=== PATIENT | male | born 1940 | race Caucasian/White ===

== ENCOUNTER 2019-04-19 13:59 | Inpatient (IN) | payer OTHER, MEDICARE ==
[~2019-04-19] VITALS: Ht 180.3 cm; Wt 93.9 kg
[2019-04-19] MEDS ORDERED: DOCU-141 PO (14:35)
[2019-04-19] MEDS ORDERED: TAMS-3 PO (14:35)
[2019-04-19] MEDS ORDERED: SENN-18 PO (14:35)
[2019-04-19] MEDS ORDERED: FINA5TAB11 PO (14:35)
[2019-04-19] MEDS ORDERED: ATEN25TA PO (14:35)
[2019-04-19] MEDS ORDERED: ATOR10TA PO (14:35)
[2019-04-19] MEDS ORDERED: SEVE800T8 PO (14:35)
[2019-04-19 14:38] LABS: BASOPHILS # (AUTO) 0.1 K/uL (0.0-8.0); BASOPHILS % (AUTO) 0.8 % (0.0-2.0); EOSINOPHILS # (AUTO) 0.4 K/uL (0.0-0.7); EOSINOPHILS % (AUTO) 3.7 % (0.0-7.0); HEMATOCRIT 30.9 % (36.7-47.1); HEMOGLOBIN 9.8 g/dL (12.5-16.3); LYMPHOCYTES # (AUTO) 1.8 K/uL (20.0-40.0); LYMPHOCYTES % (AUTO) 17.7 % (20.5-51.5); MEAN CORPUSCULAR HGB CONC 32 g/dL (32.5-36.3); MEAN CORPUSCULAR VOLUME 97.6 fL (73.0-96.2); NEUTROPHILS # (AUTO) 6.7 K/uL (1.8-8.9); NEUTROPHILS % (AUTO) 67.8 % (38.5-71.5); PLATELET COUNT (AUTO) 103 K/uL (152-348); RED BLOOD CELL COUNT(AUTO) 3.17 MIL/uL (4.06-5.63); WHITE BLOOD COUNT (AUTO) 9.9 K/uL (3.6-10.2)
[2019-04-19 15:02] LABS: ALANINE AMINOTRANSFERASE 48 U/L (16-63); ALKALINE PHOSPHATASE 121 U/L (50-136); ASPARTATE AMINOTRANSFERASE 49 U/L (15-37); BILIRUBIN,DIRECT 0.1 mg/dL (0.0-0.2); BILIRUBIN,TOTAL 0.5 mg/dL (0.2-1.0); CARBON DIOXIDE 21 mmol/L (21-32); CHLORIDE 123 mmol/L (98-107); CREATININE 4.9 mg/dL (0.6-1.3); GLUCOSE 111 mg/dL (74-106); POTASSIUM 4.5 mmol/L (3.5-5.1); TOTAL PROTEIN, SERUM 8.1 g/dL (6.4-8.2)
[2019-04-19 15:06] LABS: UREA NITROGEN, BLOOD 103 mg/dL (7-18)
[2019-04-19] MEDS ORDERED: IV D5W 1000ML 1,000 ML IV ONE (15:30)
[2019-04-19 15:53] LABS: *BILIRUBIN,URIN NEGATIVE (NEGATIVE); *BLOOD, URINE 3+ (NEGATIVE); *CLARITY,URINE CLOUDY (CLEAR); *COLOR,URINE YELLOW (YELLOW); *KETONES,URINE NEGATIVE (NEGATIVE); *UROBILINOGEN,URINE 0.2 E.U./dl (NORMAL); LEUKOCYTE ESTERASE ,URINE 3+ (NEGATIVE); NITRITE, URINE POSITIVE (NEGATIVE); UGLUCOSE TRACE (NEGATIVE)
--- NOTE | 2019-04-19 16:10 | NUR ---
Pt back from CT, resting in bed.
[2019-04-19 16:16] LABS: WBC,URINE 80-100 /HPF (0-3)
[2019-04-19 16:17] LABS: BACTERIA,URINE FEW /HPF (NONE SEEN); SQUAMOUS EPITHELIAL CELL,UR FEW /HPF (NONE SEEN)
[2019-04-19] MEDS ORDERED: CEFTRIAXONE 1 G in IV DEXTROSE 5% 50 ML IV ONE (17:15)
[2019-04-19] MEDS ORDERED: CEFTRIAXONE 1 G VIAL ONE (17:16)
--- NOTE | 2019-04-19 17:20 | NUR ---
ER contacted Dr Neumann(Neurosurgeon) regarding pt's CT result.
--- NOTE | 2019-04-19 18:30 | NUR ---
ADMITTED FROM [facility] VIA ER AN 78 YO MALE WITH ADM DX OF RENAL FAILURE, UTI AND HYPERNATREMIA, AWAKE ALERT AND RESPONSIVE TO PAIN DURING CARE. SB ON MONITOR AND SOB ON EXERTION WITH 3L O2 NC. ROUTINE VS TAKEN. REPORT GIVEN TO MEDIA ACCOUNT EXECUTIVE
[2019-04-19 18:52] VITALS: BP 143/60
[2019-04-19] MEDS ORDERED: ONDANSETRON 4 MG/2 ML VIAL IV PRN (19:30)
[2019-04-19] MEDS ORDERED: ACETAMINOPHEN 650 MG SUPP.RECT RC PRN (19:30)
--- NOTE | 2019-04-19 19:30 | NUR ---
RECEIVED IN BED AWAKE, A/O X1. CONFUSED. IN NO ACUTE SIGNS OF DISTRESS. O2 @2LPM/NC. WILL CONTINUE TO MONITOR.
[2019-04-19 20:00] VITALS: BP 147/74
[2019-04-19] MEDS: TAMSULOSIN HCL 0.4 MG CAP.SR.24H PO SCH (20:14)
[2019-04-19] MEDS: DOCUSATE SODIUM 100 MG CAPSULE PO SCH (20:14)
[2019-04-19] MEDS ORDERED: DOCUSATE SODIUM 250 MG CAPSULE PO SCH (21:00)
[2019-04-20] VITALS: BP 111/52
[2019-04-20 04:00] VITALS: BP 127/65
[2019-04-20] MEDS: PANTOPRAZOLE SODIUM 40 MG TABLET.DR PO SCH (06:16)
--- NOTE | 2019-04-20 06:48 | NUR ---
PT RESTING IN BED, IN NO ACUTE SIGNS OF DISTRESS AT THIS TIME. SINUS JAEL 40S WHEN ASLEEP, WITH BUNDLE BRANCH.
[2019-04-20 06:59] LABS: BASOPHILS # (AUTO) 0.1 K/uL (0.0-8.0); BASOPHILS % (AUTO) 1.5 % (0.0-2.0); EOSINOPHILS # (AUTO) 0.4 K/uL (0.0-0.7); EOSINOPHILS % (AUTO) 3.7 % (0.0-7.0); HEMATOCRIT 28.5 % (36.7-47.1); HEMOGLOBIN 9.1 g/dL (12.5-16.3); LYMPHOCYTES # (AUTO) 1.7 K/uL (20.0-40.0); LYMPHOCYTES % (AUTO) 17.9 % (20.5-51.5); MEAN CORPUSCULAR HEMOGLOBIN 31.1 uug (23.8-33.4); MEAN CORPUSCULAR HGB CONC 32 g/dL (32.5-36.3); MEAN CORPUSCULAR VOLUME 97.3 fL (73.0-96.2); MONOCYTES # (AUTO) 0.9 K/uL (2.0-10.0); MONOCYTES % (AUTO) 9.1 % (0.0-11.0); NEUTROPHILS # (AUTO) 6.6 K/uL (1.8-8.9); NEUTROPHILS % (AUTO) 67.8 % (38.5-71.5); PLATELET COUNT (AUTO) 90 K/uL (152-348); RED BLOOD CELL COUNT(AUTO) 2.93 MIL/uL (4.06-5.63); WHITE BLOOD COUNT (AUTO) 9.7 K/uL (3.6-10.2)
[2019-04-20 07:12] LABS: IRON, SERUM 63 ug/dL (50-175)
[2019-04-20 07:48] LABS: EOSINOPHILS % (MANUAL) 1 % (0-8); LYMPHOCYTES % (MANUAL) 22 % (20-40); MONOCYTES % (MANUAL) 7 % (2-10); NEUTROPHILS % (MANUAL) 70 % (42-75)
[2019-04-20 08:05] LABS: THYROID STIMULATING HORMONE 5.568 mIU/mL (0.358-3.740)
[2019-04-20 08:06] LABS: ALANINE AMINOTRANSFERASE 42 U/L (16-63); ALKALINE PHOSPHATASE 111 U/L (50-136); ASPARTATE AMINOTRANSFERASE 52 U/L (15-37); BILIRUBIN,TOTAL 0.4 mg/dL (0.2-1.0); CARBON DIOXIDE 20 mmol/L (21-32); CHLORIDE 124 mmol/L (98-107); CHOLESTEROL 115 mg/dL (<200); CREATININE 4.8 mg/dL (0.6-1.3); GLUCOSE 89 mg/dL (74-106); HDL CHOLESTEROL 25 mg/dL (40-60); MAGNESIUM 2.1 mg/dL (1.8-2.4); POTASSIUM 4.6 mmol/L (3.5-5.1); TOTAL PROTEIN, SERUM 7.9 g/dL (6.4-8.2); TRIGLYCERIDES 131 MG/DL (30-150)
[2019-04-20 08:12] LABS: UREA NITROGEN, BLOOD 101 mg/dL (7-18)
--- NOTE | 2019-04-20 08:15 | NUR ---
Notified Dr Edwards critical lab of NA 157, BUN 101/creat 4.8. Awaiting further orders. Discussed with RECORDS MANAGER to limit Fluid secondary to pt edema +2 BERLIN EXt. Will monitor output through F/C.
[2019-04-20] MEDS: BUMETANIDE 1 MG/4 ML VIAL IV SCH (08:57)
[2019-04-20] MEDS: FINASTERIDE 5 MG TABLET PO SCH (08:57)
[2019-04-20] MEDS: IV 1/2NS 1000 ML 1,000 ML IV PRN ×2 (10:46→23:56)
[2019-04-20 11:00] VITALS: BP_SYST 122; BP_SYST 124; BP_DIAS 64; BP_DIAS 81
--- NOTE | 2019-04-20 11:00 | NUR ---
BRANDY SIMS concerned about hydrocephalus form head ct here at [facility]. [facility] about [facility] baseline and how pt was prior to transfer here at [facility]. Pt's has been having hard time finding words same from prior condition. Per izaiah pt has no reported hydrocephalus. ABG done and resulted and given to Chago NAVA by RT. Called Sister TROY GUTIERREZ to get consent for getting authorization to release record from [facility] about any ct/mri imaging that discusses with hydrocephalus. Awaiting call back.
--- NOTE | 2019-04-20 11:30 | NUR ---
Spoke with sister max alonso. OK with giving consent to release record necessary from [facility]. Sister states that he has had thi hydrocephalus for awhile. Faxed request to release record to [facility]. 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
[2019-04-20 12:10] LABS: ABG BASE EXCESS -9.5 mmol/L; ABG HCO3 15.6 mmol/L; ABG PCO2 31.2 mmHg (35.0-45.0); ABG PH 7.317 (7.350-7.450); ABG PO2 89.9 mmHg (75.0-100.0); ABG SITE LEFT RADIAL; COHb 0.8 % (0.5-1.5); MetHb 0.3 % (0.0-1.5); O2Hb 95.6 % (94.0-97.0); VENT MODE Nasal Cannula
[2019-04-20 12:16] LABS: *BILIRUBIN,URIN NEGATIVE (NEGATIVE); *BLOOD, URINE 2+ (NEGATIVE); *CLARITY,URINE SLIGHTLY CLOUDY (CLEAR); *COLOR,URINE LIGHT YELLOW (YELLOW); *KETONES,URINE NEGATIVE (NEGATIVE); *UROBILINOGEN,URINE 0.2 E.U./dl (NORMAL); LEUKOCYTE ESTERASE ,URINE 2+ (NEGATIVE); NITRITE, URINE NEGATIVE (NEGATIVE); PH,URINE 5.5 (5.0-8.0); UGLUCOSE TRACE (NEGATIVE)
[2019-04-20 12:23] LABS: SQUAMOUS EPITHELIAL CELL,UR NONE SEEN /HPF (NONE SEEN)
[2019-04-20 12:24] LABS: BACTERIA,URINE FEW /HPF (NONE SEEN); RBC,URINE TNTC /HPF (0-3); WBC,URINE 80-100 /HPF (0-3)
[2019-04-20 13:10] LABS: *CREATININE,URINE 51.4 mg/dL (30-125)
[2019-04-20 15:15] VITALS: BP 136/53
--- NOTE | 2019-04-20 16:00 | NUR ---
[facility] records received and noted hydrocephalus on prior CT. Put records on chart.
[2019-04-20] MEDS: CEFTRIAXONE 1 G in IV DEXTROSE 5% 50 ML IV SCH (16:24)
--- NOTE | 2019-04-20 18:30 | NUR ---
Output of 1000cc from f/c - bumex given earlier effective. No fall noted this shift. Pt on High Fowlers position. Call light is within reach.
--- NOTE | 2019-04-20 19:40 | NUR ---
Received patient awake in bed, confused, has garbled speech which per report is patient's baseline status. He has oxygen support at 2lpm via nasal cannula, maintained, not in respiratory distress. He has an iv access on the right forearm to ongoing IVF, infusing well. Bed kept in semi-fowlers position, locked, side rails up x 2. Noise and lights subdued. Will continue to monitor.
[2019-04-20 20:00] VITALS: BP 130/52
[2019-04-20] MEDS: DOCUSATE SODIUM 100 MG CAPSULE PO SCH (21:08)
[2019-04-20] MEDS: TAMSULOSIN HCL 0.4 MG CAP.SR.24H PO SCH (21:08)
[2019-04-21 00:05] VITALS: BP 136/62
--- NOTE | 2019-04-21 02:00 | NUR ---
Patient has increased respiratory rate and labored breathing but no coughing. Called and spoke with Dr. Ashton regarding patient's breathing, MD ordered to hold IV fluids and do a chest xray - noted and ordered.
[2019-04-21 04:00] VITALS: BP 128/66
--- NOTE | 2019-04-21 05:59 | NUR ---
Patient slept intermittently throughout the night. Still with oxygen support at 2lpm via nasal cannula, maintained. With IV access now at left hand to saline lock. Dr. Ashton ordered to hold IV fluid hydration due to increased respiratory rate and labored breathing. Chest xray was also done. No other untoward events noted. Attended all needs. Ensured safety and comfort.
[2019-04-21] MEDS: PANTOPRAZOLE SODIUM 40 MG TABLET.DR PO SCH (06:19)
[2019-04-21 06:54] LABS: BASOPHILS % (AUTO) 0.6 % (0.0-2.0); EOSINOPHILS # (AUTO) 0.3 K/uL (0.0-0.7); EOSINOPHILS % (AUTO) 3.5 % (0.0-7.0); HEMATOCRIT 28.3 % (36.7-47.1); HEMOGLOBIN 9.2 g/dL (12.5-16.3); LYMPHOCYTES # (AUTO) 1.6 K/uL (20.0-40.0); LYMPHOCYTES % (AUTO) 21.8 % (20.5-51.5); MEAN CORPUSCULAR HEMOGLOBIN 31.4 uug (23.8-33.4); MEAN CORPUSCULAR HGB CONC 32 g/dL (32.5-36.3); MEAN CORPUSCULAR VOLUME 97.1 fL (73.0-96.2); MONOCYTES # (AUTO) 0.7 K/uL (2.0-10.0); MONOCYTES % (AUTO) 9.7 % (0.0-11.0); NEUTROPHILS # (AUTO) 4.7 K/uL (1.8-8.9); NEUTROPHILS % (AUTO) 64.4 % (38.5-71.5); PLATELET COUNT (AUTO) 81 K/uL (152-348); RED BLOOD CELL COUNT(AUTO) 2.92 MIL/uL (4.06-5.63); WHITE BLOOD COUNT (AUTO) 7.4 K/uL (3.6-10.2)
[2019-04-21 07:05] LABS: ALANINE AMINOTRANSFERASE 38 U/L (16-63); ALKALINE PHOSPHATASE 99 U/L (50-136); ASPARTATE AMINOTRANSFERASE 43 U/L (15-37); BILIRUBIN,TOTAL 0.4 mg/dL (0.2-1.0); CARBON DIOXIDE 19 mmol/L (21-32); CHLORIDE 123 mmol/L (98-107); CREATININE 4.9 mg/dL (0.6-1.3); GLUCOSE 85 mg/dL (74-106); MAGNESIUM 2.2 mg/dL (1.8-2.4); PHOSPHOROUS 6.3 mg/dL (2.5-4.9); POTASSIUM 4.4 mmol/L (3.5-5.1)
[2019-04-21 07:29] LABS: UREA NITROGEN, BLOOD 94 mg/dL (7-18)
--- NOTE | 2019-04-21 08:00 | NUR ---
AWAKE ALERT AND SCREAMING LOUD ON AND OFF, NEEDS ATTENDED. SR ON MONITOR, NO SS OF DISTRESS O2 SAT 96 AT 2L NC. OBSERVE.
[2019-04-21] MEDS: FINASTERIDE 5 MG TABLET PO SCH (08:22)
[2019-04-21] MEDS: BUMETANIDE 1 MG/4 ML VIAL IV SCH (08:22)
[2019-04-21] MEDS: ACETAMINOPHEN 325 MG TABLET PO PRN ×2 (08:23→23:21)
[2019-04-21 12:00] VITALS: BP 127/68
[2019-04-21] MEDS ORDERED: IV 1/2NS 1000 ML 1,000 ML IV PRN (12:00)
--- NOTE | 2019-04-21 12:00 | NUR ---
PATIENT CONTINUE TO BE SCREAMING AND PULLING OUT IV NEEDLE X2 IN SPITE OF WRAPPING SITE WITH KERLIX. SOFT MITTENS APPLIED AND CLOSELY MONITORED
[2019-04-21 12:19] LABS: ABG PCO2 31.4 mmHg (35.0-45.0); ABG PH 7.325 (7.350-7.450); ABG PO2 97.9 mmHg (75.0-100.0); ABG SITE LEFT BRACHIAL; ABG TOTAL HEMOGLOBIN 9.3 G/dL (13.5-18.0); COHb 0.6 % (0.5-1.5); MetHb 0.2 % (0.0-1.5); O2Hb 96.5 % (94.0-97.0); VENT MODE Nasal Cannula
[2019-04-21 15:48] VITALS: BP 138/65
--- NOTE | 2019-04-21 16:07 | NUR ---
CONTINUE TO SCREAM AND VERBALLY ABUSIVE PRN MEDS GIVEN AND CLOSELY MONITORED SR ON MONITOR
[2019-04-21] MEDS: MORPHINE SULFATE 2 MG/1 ML DISP.SYRIN IV PRN ×2 (16:16→20:22)
[2019-04-21] MEDS: CEFTRIAXONE 1 G in IV DEXTROSE 5% 50 ML IV SCH (16:16)
[2019-04-21 20:00] VITALS: BP 152/73
--- NOTE | 2019-04-21 20:00 | NUR ---
RECEIVED PT. ALERT ORIENTED X 1-2, CONFUSED, AGITATED, AND YELLING. IV SITE IN LEFT HAND 20 GAUGE HEP LOCK. PT. CONTINUOUSLY YELLING AND BEING DISRUPTIVE TO UNIT. CALLED NURSE PRACTITIONER PA SIMS AND GEOMAGNETICIAN ORDERED ABG STAT. CALL LIGHT WITHIN REACH. SIDE RAILS LOCKED. BED IN LOWEST POSITION. BED ALARM ON.
[2019-04-21 20:15] LABS: ABG BASE EXCESS -9.2 mmol/L; ABG HCO3 15.8 mmol/L; ABG PCO2 31.1 mmHg (35.0-45.0); ABG PH 7.324 (7.350-7.450); ABG PO2 80.1 mmHg (75.0-100.0); ABG SITE RIGHT RADIAL; ABG TOTAL HEMOGLOBIN 9.4 G/dL (13.5-18.0); COHb 1.3 % (0.5-1.5); MetHb 0.5 % (0.0-1.5); O2Hb 94.1 % (94.0-97.0); VENT MODE Nasal Cannula
[2019-04-21] MEDS: DOCUSATE SODIUM 100 MG CAPSULE PO SCH (20:23)
[2019-04-21] MEDS: TAMSULOSIN HCL 0.4 MG CAP.SR.24H PO SCH (20:23)
[2019-04-22] MEDS: MORPHINE SULFATE 2 MG/1 ML DISP.SYRIN IV PRN ×3 (04:05→22:12)
[2019-04-22 04:53] VITALS: BP 135/66
--- NOTE | 2019-04-22 05:32 | NUR ---
Pt. is alert oriented to self and confused. Pt. slept intermittently during night with episodes of pt agitation presented by screaming loud and being restless. IV site in left hand 20 gauge hep lock. Aspiration precautions and HOB raised greater than 90 degrees. ABG resulted last night. Per RT, no critical values. Pt has mitten restraints on bilaterally and we are assessing and monitoring pt as ordered. Carranza catheter draining well. All needs attended to promptly. Safety initiated. Bed in lowest position, 2 side rails up, bed locked, call light within reach. Comfort measures provided. Will continue to monitor.
[2019-04-22 06:45] LABS: BASOPHILS % (AUTO) 0.4 % (0.0-2.0); EOSINOPHILS # (AUTO) 0.2 K/uL (0.0-0.7); EOSINOPHILS % (AUTO) 2.8 % (0.0-7.0); HEMATOCRIT 25.7 % (36.7-47.1); HEMOGLOBIN 8.3 g/dL (12.5-16.3); LYMPHOCYTES # (AUTO) 1.6 K/uL (20.0-40.0); LYMPHOCYTES % (AUTO) 19.6 % (20.5-51.5); MEAN CORPUSCULAR HEMOGLOBIN 31.4 uug (23.8-33.4); MEAN CORPUSCULAR HGB CONC 32 g/dL (32.5-36.3); MEAN CORPUSCULAR VOLUME 97.5 fL (73.0-96.2); MONOCYTES # (AUTO) 0.9 K/uL (2.0-10.0); MONOCYTES % (AUTO) 10.9 % (0.0-11.0); NEUTROPHILS # (AUTO) 5.4 K/uL (1.8-8.9); NEUTROPHILS % (AUTO) 66.3 % (38.5-71.5); PLATELET COUNT (AUTO) 80 K/uL (152-348); RED BLOOD CELL COUNT(AUTO) 2.64 MIL/uL (4.06-5.63); WHITE BLOOD COUNT (AUTO) 8.2 K/uL (3.6-10.2)
[2019-04-22 06:54] LABS: ALANINE AMINOTRANSFERASE 35 U/L (16-63); ALKALINE PHOSPHATASE 95 U/L (50-136); ASPARTATE AMINOTRANSFERASE 41 U/L (15-37); BILIRUBIN,TOTAL 0.4 mg/dL (0.2-1.0); CARBON DIOXIDE 19 mmol/L (21-32); CHLORIDE 123 mmol/L (98-107); CREATINE KINASE, TOTAL 155 U/L (39-308); CREATININE 4.9 mg/dL (0.6-1.3); GLUCOSE 97 mg/dL (74-106); MAGNESIUM 2.2 mg/dL (1.8-2.4); PHOSPHOROUS 6.5 mg/dL (2.5-4.9); POTASSIUM 4.3 mmol/L (3.5-5.1)
[2019-04-22] MEDS: PANTOPRAZOLE SODIUM 40 MG TABLET.DR PO SCH (06:57)
[2019-04-22 07:08] LABS: UREA NITROGEN, BLOOD 98 mg/dL (7-18)
--- NOTE | 2019-04-22 08:00 | NUR ---
RESTING IN BED BUT AWAKE AND UNABLE TO FOLLOW COMMAND. NOTED ALSO WITH ON AND OFF YELLING/SCREAMING. NEEDS ATTENDED AND CLOSELY MONITORED. APPETITE EXCELLENT. NO SS OF DISTRESS
[2019-04-22] MEDS: BUMETANIDE 1 MG/4 ML VIAL IV SCH (08:19)
[2019-04-22] MEDS: FINASTERIDE 5 MG TABLET PO SCH (08:19)
[2019-04-22] MEDS: ACETAMINOPHEN 325 MG TABLET PO PRN (08:19)
[2019-04-22 11:40] VITALS: BP 113/49
--- NOTE | 2019-04-22 11:48 | NUR ---
SEEN BY GLADYS SIMS FOR MEDICAL FOLLOW-UP SEE NOTES
[2019-04-22] MEDS ORDERED: IV D5W 1000ML 1,000 ML IV SCH (12:45)
[2019-04-22 15:08] VITALS: BP 119/58
[2019-04-22] MEDS: CEFTRIAXONE 1 G in IV DEXTROSE 5% 50 ML IV SCH (15:34)
--- NOTE | 2019-04-22 17:29 | NUR ---
CONTINUE CURRENT TX PLAN ORDERED. CONTINUE WITH PAIN MANAGEMENT
--- NOTE | 2019-04-22 19:45 | NUR ---
Patient was received from the day shift RN. Carranza is draining, IV is patent and intact. Patient has soft mittens bilaterally. Skin is intact, comfort and safety provided.
[2019-04-22 20:00] VITALS: BP 114/48
[2019-04-22] MEDS: DOCUSATE SODIUM 100 MG CAPSULE PO SCH (21:11)
[2019-04-22] MEDS: TAMSULOSIN HCL 0.4 MG CAP.SR.24H PO SCH (21:12)
[2019-04-22] MEDS: QUETIAPINE FUMARATE 25 MG TABLET PO PRN (23:30)
--- NOTE | 2019-04-23 05:00 | NUR ---
Pt. became rapidly agitated and removed both mittens and pulled out IV. IV site was cleaned and dressed. Linen was changed. Pt. has increasingly pedal edema, shortness of breath, and increasing respiratory rate. HOB raised, held fluids due to possible flue overload. Will continue to monitor. Charge nurse notified.
[2019-04-23 05:21] VITALS: BP 117/65
[2019-04-23 06:37] LABS: BASOPHILS # (AUTO) 0.1 K/uL (0.0-8.0); BASOPHILS % (AUTO) 0.6 % (0.0-2.0); EOSINOPHILS # (AUTO) 0.2 K/uL (0.0-0.7); EOSINOPHILS % (AUTO) 2.3 % (0.0-7.0); HEMATOCRIT 28.1 % (36.7-47.1); HEMOGLOBIN 8.9 g/dL (12.5-16.3); LYMPHOCYTES # (AUTO) 1.3 K/uL (20.0-40.0); LYMPHOCYTES % (AUTO) 15.5 % (20.5-51.5); MEAN CORPUSCULAR HEMOGLOBIN 31.1 uug (23.8-33.4); MEAN CORPUSCULAR HGB CONC 32 g/dL (32.5-36.3); MEAN CORPUSCULAR VOLUME 97.9 fL (73.0-96.2); MONOCYTES # (AUTO) 0.7 K/uL (2.0-10.0); MONOCYTES % (AUTO) 8.5 % (0.0-11.0); NEUTROPHILS # (AUTO) 6.2 K/uL (1.8-8.9); NEUTROPHILS % (AUTO) 73.1 % (38.5-71.5); PLATELET COUNT (AUTO) 79 K/uL (152-348); RED BLOOD CELL COUNT(AUTO) 2.87 MIL/uL (4.06-5.63); WHITE BLOOD COUNT (AUTO) 8.5 K/uL (3.6-10.2)
[2019-04-23 06:51] LABS: CARBON DIOXIDE 20 mmol/L (21-32); CHLORIDE 117 mmol/L (98-107); CREATININE 5.1 mg/dL (0.6-1.3); GLUCOSE 83 mg/dL (74-106); MAGNESIUM 2.2 mg/dL (1.8-2.4); PHOSPHOROUS 6.1 mg/dL (2.5-4.9); POTASSIUM 3.7 mmol/L (3.5-5.1)
[2019-04-23 06:55] LABS: UREA NITROGEN, BLOOD 91 mg/dL (7-18)
[2019-04-23] MEDS: PANTOPRAZOLE SODIUM 40 MG TABLET.DR PO SCH (07:15)
[2019-04-23 07:29] LABS: BAND % (MANUAL) 1 % (0-10); BASOPHILS % (MANUAL) 1 % (0-2); LYMPHOCYTES % (MANUAL) 15 % (20-40); MONOCYTES % (MANUAL) 9 % (2-10); NEUTROPHILS % (MANUAL) 74 % (42-75)
--- NOTE | 2019-04-23 07:50 | NUR ---
Dr. Los Jones is on the floor, was notified of possible fluid overload earlier. He shares the concern and aware of the crackes in the lungs, already discontinued the fluids. patient is in no acute distress, comfort and safety provided. New IV was inserted in the left wrist. Report given to the day shift RN.
[2019-04-23 08:11] LABS: A/G RATIO 0.7 (0.7-1.7); ALBUMIN 2.7 g/dL (2.9-4.4); ALPHA-1-GLOBULIN 0.3 g/dL (0.0-0.4); ALPHA-2-GLOBULIN 0.6 g/dL (0.4-1.0); BETA GLOBULIN 1.3 g/dL (0.7-1.3); GAMMA GLOBULIN 1.7 g/dL (0.4-1.8); GLOBULIN, TOTAL 3.9 g/dL (2.2-3.9); M-SPIKE Not Observed g/dL (Not Observed)
[2019-04-23] MEDS: FINASTERIDE 5 MG TABLET PO SCH (08:19)
[2019-04-23] MEDS: BUMETANIDE 1 MG/4 ML VIAL IV SCH (08:19)
[2019-04-23 11:14] VITALS: BP 101/46
[2019-04-23 15:36] VITALS: BP 94/48
[2019-04-23] MEDS: CEFTRIAXONE 1 G in IV DEXTROSE 5% 50 ML IV SCH (16:00)
--- NOTE | 2019-04-23 18:26 | NUR ---
Patient stable, no distress or pain noted. Patient on oxygen via nasal cannula. Mittens on for safety, order for restraints entered today 0700 per Jeaneth Anders NP. Safety checks q15 minutes. Patient resting comfortably. Will endorse care to oncoming shift.
--- NOTE | 2019-04-23 19:30 | NUR ---
PATIENT ALERT BUT FORGETFUL, NO SOB NO CHEST PAIN, ON OXYGEN 2LP NASAL CANNULA. PATIENT ON HAND MITTENS, CHECK FOR CIRCULATION AND PLACEMENT. PATIENT ON HAND MITTENS DUE PULLING OUT TUBES, OXYGEN AND MEDINA CATHETER. MEDINA CATH PATENT DRAINING WITH YELLOW COLOR URINE IN MODERATE AMOUNT. PATIENT HAS EPISODE OF AGITATIONS, YELLING AND SCREAMING, PATIENT ABLE TO REDIRECT BEHAVIOR AT THIS TIME. CONT TO MONITOR.
[2019-04-23 19:42] VITALS: BP 116/59
[2019-04-23] MEDS: ACETAMINOPHEN 325 MG TABLET PO PRN (20:18)
[2019-04-23] MEDS: DOCUSATE SODIUM 100 MG CAPSULE PO SCH (20:18)
[2019-04-23] MEDS: TAMSULOSIN HCL 0.4 MG CAP.SR.24H PO SCH (20:19)
[2019-04-23] MEDS: QUETIAPINE FUMARATE 25 MG TABLET PO PRN (20:59)
[2019-04-23] MEDS: MORPHINE SULFATE 2 MG/1 ML DISP.SYRIN IV PRN (21:21)
[2019-04-23] MEDS ORDERED: LORAZEPAM 2 MG/1 ML VIAL IV ONE (22:00)
--- NOTE | 2019-04-23 22:00 | NUR ---
PATIENT YELLING AND SCREAMING FOR NO REASON, PATIENT WAS GIVEN PAIN MEDICATIONS, KEPT CLEAN AND DRY, TURN AND REPOSITION, BUT STILL YELLING ON TOP OF HIS LUNGS, NOTIFY PA SIMS HAND MOLDER MEAT WITH NEW ORDER. CONT TO MONITOR.
[2019-04-24 04:34] VITALS: BP 137/65
[2019-04-24] MEDS: PANTOPRAZOLE SODIUM 40 MG TABLET.DR PO SCH (06:12)
[2019-04-24 06:29] LABS: BASOPHILS # (AUTO) 0.1 K/uL (0.0-8.0); BASOPHILS % (AUTO) 0.5 % (0.0-2.0); EOSINOPHILS # (AUTO) 0.2 K/uL (0.0-0.7); EOSINOPHILS % (AUTO) 1.7 % (0.0-7.0); HEMATOCRIT 26.9 % (36.7-47.1); HEMOGLOBIN 8.5 g/dL (12.5-16.3); LYMPHOCYTES # (AUTO) 1.7 K/uL (20.0-40.0); LYMPHOCYTES % (AUTO) 13.8 % (20.5-51.5); MEAN CORPUSCULAR HGB CONC 32 g/dL (32.5-36.3); MEAN CORPUSCULAR VOLUME 98.1 fL (73.0-96.2); MONOCYTES # (AUTO) 1.2 K/uL (2.0-10.0); MONOCYTES % (AUTO) 9.9 % (0.0-11.0); NEUTROPHILS # (AUTO) 8.9 K/uL (1.8-8.9); NEUTROPHILS % (AUTO) 74.1 % (38.5-71.5); PLATELET COUNT (AUTO) 78 K/uL (152-348); RED BLOOD CELL COUNT(AUTO) 2.74 MIL/uL (4.06-5.63)
[2019-04-24 07:02] LABS: BAND % (MANUAL) 1 % (0-10); LYMPHOCYTES % (MANUAL) 14 % (20-40); NEUTROPHILS % (MANUAL) 68 % (42-75)
[2019-04-24 07:03] LABS: EOSINOPHILS % (MANUAL) 4 % (0-8); MONOCYTES % (MANUAL) 13 % (2-10)
[2019-04-24 07:06] LABS: CARBON DIOXIDE 20 mmol/L (21-32); CHLORIDE 117 mmol/L (98-107); CREATININE 5.8 mg/dL (0.6-1.3); GLUCOSE 97 mg/dL (74-106); MAGNESIUM 2.1 mg/dL (1.8-2.4); PHOSPHOROUS 6.5 mg/dL (2.5-4.9)
[2019-04-24 07:09] LABS: UREA NITROGEN, BLOOD 94 mg/dL (7-18)
--- NOTE | 2019-04-24 07:30 | NUR ---
Received report from manufacturing supervisor 2nd shift nurse, patient in bed asleep, no distress noted at this time, bed in low position, side rails upx2, bed alarm on.
[2019-04-24] MEDS: FINASTERIDE 5 MG TABLET PO SCH (09:29)
[2019-04-24] MEDS: BUMETANIDE 1 MG/4 ML VIAL IV SCH (09:30)
--- NOTE | 2019-04-24 10:06 | NUR ---
- Recommend further restrict protein to 50gm/day per estimated needs and BUN/Cr labs remaining high. With dialysis refusal, conservative dietary management is indicated. - Continue K2 renal diet, consider other restrictions as needed based on renal sufficiency and nutrient levels. - Monitor PO intake, renal/anemia labs, weight, skin integrity, GI/LBM. Addendum: 04/24/19 at [address] Amended: Links added.
[2019-04-24] MEDS ORDERED: EPOETIN ALFA 10,000 UNITS/ML VIAL SQ ONE (11:00)
--- NOTE | 2019-04-24 11:30 | NUR ---
Patient noted to have blood in rayo catheter. Repositioned bag and will continue to monitor for bleeding.
[2019-04-24] MEDS: Z GUARD REMEDY PASTE 57 GM TUBE TOP SCH ×2 (11:45→22:56)
[2019-04-24 11:50] VITALS: BP 113/49
[2019-04-24] MEDS: SEVELAMER CARBONATE 800 MG TABLET PO SCH ×2 (12:42→18:00)
[2019-04-24] MEDS: MORPHINE SULFATE 2 MG/1 ML DISP.SYRIN IV PRN (15:24)
[2019-04-24] MEDS ORDERED: LORAZEPAM 2 MG/1 ML VIAL IV ONE (16:00)
[2019-04-24 16:27] VITALS: BP 122/62
[2019-04-24] MEDS: CEFTRIAXONE 1 G in IV DEXTROSE 5% 50 ML IV SCH (16:27)
--- NOTE | 2019-04-24 17:51 | NUR ---
patients rayo started to have bright red blood again, and physician was notified. No new orders at this time.
--- NOTE | 2019-04-24 18:51 | NUR ---
Patient has been agitated and disruptive to his care by pulling out IV line, and pulling and biting mittens and striking at staff through most of the shift. Currently patient is in bed asleep, no distress noted at this time, and refusing meds and meals after breakfast. Patient spit lunch out after first bite.
--- NOTE | 2019-04-24 19:30 | NUR ---
RECEIVED PATIENT ALERT BUT FORGETFUL, NO S/S OF SOB NO S/S OF CHEST PAIN, HOB ELEVATED, ON OXYGEN 2LPM OXYGEN SAT 97%, PATIENT QUIET AT THIS TIME NO YELLING NOTED AT THIS TIME. RECEIVED PATIENT WITH NO HAND MITTENS AT THIS TIME. PATIENT HAS NO BEHAVIORAL EPISODES OF PULLING IV, NO PULLING OF MEDINA CATH AT THIS TIME. RECEIVED PATIENT WITH HEMATURIA, AND BLOOD CLOTS, PER REPORT THAT PATIENT TRYING TO PULLED OUT MEDINA CATH CAUSING BLEEDING ON THE MEDINA. CONT TO MONITOR.
[2019-04-24 19:45] VITALS: BP 127/52
--- NOTE | 2019-04-24 21:00 | NUR ---
PATIENT NOTED PULLING OUT IV LINE, AND RESISTIVE WITH CARE, YELLS AND SCREAM, GAVE PATIENT SEROQUEL MEDS ORDERED, PLACE ENTRY WRITER MITTENS, CHECKED FOR CIRCULATION AND PLACEMENT. PATIENT MEDINA CATH DRAINING WITH TEA COLOR URINE IN MODERATE AMOUNT WITH MINIMAL CLOTS NOTED. TURN AND REPOSITION, KEPT COMFORTABLE.
[2019-04-24] MEDS: QUETIAPINE FUMARATE 25 MG TABLET PO PRN (21:13)
[2019-04-24] MEDS: DOCUSATE SODIUM 100 MG CAPSULE PO SCH (21:13)
[2019-04-24] MEDS: ACETAMINOPHEN 325 MG TABLET PO PRN (21:13)
[2019-04-24] MEDS: TAMSULOSIN HCL 0.4 MG CAP.SR.24H PO SCH (21:13)
[2019-04-25 04:38] VITALS: BP 111/50
[2019-04-25] MEDS: PANTOPRAZOLE SODIUM 40 MG TABLET.DR PO SCH (07:22)
[2019-04-25] MEDS: SEVELAMER CARBONATE 800 MG TABLET PO SCH ×3 (07:23→17:21)
[2019-04-25] MEDS: FINASTERIDE 5 MG TABLET PO SCH (08:06)
[2019-04-25] MEDS: Z GUARD REMEDY PASTE 57 GM TUBE TOP SCH (08:06)
[2019-04-25] MEDS: BUMETANIDE 1 MG/4 ML VIAL IV SCH (08:18)
[2019-04-25 11:07] VITALS: BP 100/42
[2019-04-25 15:06] VITALS: BP 128/60
[2019-04-25] MEDS ORDERED: CEFT1FRO2 IV (15:45)
[2019-04-25] MEDS ORDERED: QUET25TA PO (15:45)
[2019-04-25] MEDS ORDERED: SEVE800T7 PO (15:45)
[2019-04-25] MEDS ORDERED: PANT40TA2 PO (15:45)
[2019-04-25] MEDS: CEFTRIAXONE 1 G in IV DEXTROSE 5% 50 ML IV SCH (16:29)
--- NOTE | 2019-04-25 18:31 | NUR ---
D/C ORDERS RECEIVED NOTED AND CARRIED OUT,D/C INSTRUCTION AND RN REPORT GIVEN TO [facility],PT LEFT THE FACILITY VIA AMBULANCES IN STABLE CONDITION
[2019-04-28 03:06] LABS: HEPATITIS B SURFACE AB Non Reactive (.); HEPATITIS B SURFACE AG Negative (Negative)
== END 2019-04-25 18:25 | disposition hospice, home (50) | DRG 463 ==
LOC: ER 13:59 → TELE3 18:05 → MEDSURG3 04-21 18:15
PROVIDERS: ADMIT Internal Medicine; ATTEND Internal Medicine
DX: N39.0 Urinary tract infection, site not specified (principal); N17.0 Acute kidney failure with tubular necrosis; G92 Toxic encephalopathy; E44.0 Moderate protein-calorie malnutrition; G91.9 Hydrocephalus, unspecified; E87.0 Hyperosmolality and hypernatremia; D68.59 Other primary thrombophilia; E83.39 Other disorders of phosphorus metabolism; I13.11 Hypertensive heart and chronic kidney disease without heart failure, with stage 5 chronic kidney disease, or end stage renal disease; E87.2 Acidosis; I82.509 Chronic embolism and thrombosis of unspecified deep veins of unspecified lower extremity; R41.82 Altered mental status, unspecified; Z68.29 Body mass index [BMI] 29.0-29.9, adult; D63.8 Anemia in other chronic diseases classified elsewhere; N40.0 Benign prostatic hyperplasia without lower urinary tract symptoms; I13.10 Hypertensive heart and chronic kidney disease without heart failure, with stage 1 through stage 4 chronic kidney disease, or unspecified chronic kidney disease; F03.90 Unspecified dementia, unspecified severity, without behavioral disturbance, psychotic disturbance, mood disturbance, and anxiety; E78.5 Hyperlipidemia, unspecified; E03.9 Hypothyroidism, unspecified; Z74.09 Other reduced mobility; B96.89 Other specified bacterial agents as the cause of diseases classified elsewhere; N18.5 Chronic kidney disease, stage 5; I70.0 Atherosclerosis of aorta; K74.60 Unspecified cirrhosis of liver; Z96.642 Presence of left artificial hip joint; R47.01 Aphasia; N28.1 Cyst of kidney, acquired; R00.1 Bradycardia, unspecified; Z79.899 Other long term (current) drug therapy
CPT/HCPCS: 36415; 36600; 70030-TC; 70450; 71045; 76770; 83550; 83605; 83735; 83970; 84100; 84153; 84155; 84156; 84165; 84300; 84443; 85025; 85730; 86706; 86803; 86850; 86900; 86901; 87040; 87077; 87086; 87340; 92526; 92610; 93005; 93307; 97110; 97116; 97530; A4663; G0378; J0696; J0885; J2060; J2270; J3490; J7042; J7060